=== PATIENT | female | born 1965 | race African-American/Black ===

== ENCOUNTER 2020-09-12 13:10 | Day surgery (SDC) | payer OTHER ==
[~2020-09-12] VITALS: Ht 162.6 cm; Wt 90.7 kg
[~2020-09-12 13:10] MED LIST: ACYC400; ALBU90OI; ATOR40TA; IPRAT-ALBUT 0.5-3 ML; LORA10 PO; LOSA25; MONT10T; SUMA25 PO; TRAM50; VITAMIN D35000 UNIT PO
[2020-09-12] MEDS ORDERED: ASPI81CH (13:51)
[2020-09-12] MEDS ORDERED: FISH OIL 1,2001 EAC7 (13:52)
--- NOTE | 2020-09-12 14:13 | NUR ---
09/12/20 1413 Devika Westfall PATIENT TOLERATED THE SUTAB PREP
== END 2020-09-12 15:38 | disposition home or self-care (01) ==
LOC: ORSCSDS 13:10
PROVIDERS: Internal Medicine Gastroenterology
PROC: 0DJD8ZZ Inspection of Lower Intestinal Tract, Via Natural or Artificial Opening Endoscopic (ICD-10-PCS; principal; 2020-09-12 14:45)
DX: Z12.11 Encounter for screening for malignant neoplasm of colon (principal); Z80.0 Family history of malignant neoplasm of digestive organs; K57.30 Diverticulosis of large intestine without perforation or abscess without bleeding; G47.33 Obstructive sleep apnea (adult) (pediatric); E66.9 Obesity, unspecified; Z68.35 Body mass index [BMI] 35.0-35.9, adult; J45.909 Unspecified asthma, uncomplicated; Z79.899 Other long term (current) drug therapy
CPT/HCPCS: J2704; J7120

== ENCOUNTER 2021-04-08 10:05 | Emergency (ER) | payer OTHER ==
[~2021-04-08] VITALS: Ht 162.6 cm; Wt 86.2 kg
[~2021-04-08 10:05] MED LIST changes: +ASPI81CH; +FISH OIL 1,2001 EAC7
== END 2021-04-08 11:07 | disposition home or self-care (01) ==
LOC: ER 10:05
DX: U07.1 COVID-19 (principal); L98.9 Disorder of the skin and subcutaneous tissue, unspecified
CPT/HCPCS: 99282

== ENCOUNTER 2024-01-28 08:21 | Emergency (ER) | payer OTHER ==
[~2024-01-28] VITALS: Ht 162.6 cm; Wt 89.8 kg
[2024-01-28 09:47] VITALS: BP 117/85
== END 2024-01-28 11:13 | disposition home or self-care (01) ==
LOC: ER 08:21
DX: S83.92XA Sprain of unspecified site of left knee, initial encounter (principal); G43.909 Migraine, unspecified, not intractable, without status migrainosus; I10 Essential (primary) hypertension; E78.5 Hyperlipidemia, unspecified; Z79.82 Long term (current) use of aspirin; Z79.899 Other long term (current) drug therapy; X50.0XXA Overexertion from strenuous movement or load, initial encounter
CPT/HCPCS: 73562-LT; 99283-25

== ENCOUNTER → 2024-07-07 | Outpatient (CLI) | payer SELFPAY ==
[2024-07-07 19:56] LABS: Microalb/Creat Ratio UR, Rand Unable to Calculate mg/g (0.000-30.000); Microalbumin, Random Urine <5.000 mg/L (0.000-20.000)
== END ==
LOC: LAB 16:10 → LAB SHORT 16:10
PROVIDERS: Family Medicine
DX: E11.8 Type 2 diabetes mellitus with unspecified complications (principal)
CPT/HCPCS: 82043; 82570